=== PATIENT | male | born 1980 | race African-American/Black ===

== ENCOUNTER 2018-10-21 21:33 | Emergency (ER) | payer OTHER ==
[2018-10-21] MEDS ORDERED: Ketorolac Tromethamine 60 MG/2 ML VIAL ONE (22:05)
--- NOTE | 2018-10-21 22:51 | RAD ---
TWO VIEWS CHEST: Date: 10-21-18 Comparison: None. History: Trauma. FINDINGS: Lungs are clear. Heart and mediastinal contours are unremarkable. IMPRESSION: No acute findings. POS: [facility]
== END 2018-10-21 22:33 | disposition home or self-care (01) ==
LOC: MADERS 21:33
DX: S20.219A Contusion of unspecified front wall of thorax, initial encounter (principal); I10 Essential (primary) hypertension; V40.5XXA Car driver injured in collision with pedestrian or animal in traffic accident, initial encounter
CPT/HCPCS: 71046; 96372; J1885